=== PATIENT | male | born 1990 | race Caucasian/White ===

== ENCOUNTER 2017-05-03 18:12 | Emergency (ER) | payer BC ==
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
[2017-05-03] MEDS ORDERED: Sodium Chloride 0.9% 10 ML Syringe FLUSH PRN (18:36)
[2017-05-03] MEDS ORDERED: cefTRIAXone 1 GM in Sodium Chloride 0.9% 100 ML IV ONE (18:36)
[2017-05-03 18:51] LABS: CHLORIDE,CL 100 mmol/L (98-107); SODIUM,NA 137 mmol/L (136-145)
== END 2017-05-03 19:55 | disposition home or self-care (01) ==
LOC: LL.ED 18:12
DX: J40 Bronchitis, not specified as acute or chronic (principal); J06.9 Acute upper respiratory infection, unspecified; F41.3 Other mixed anxiety disorders; F32.9 Major depressive disorder, single episode, unspecified; F90.9 Attention-deficit hyperactivity disorder, unspecified type; R00.0 Tachycardia, unspecified; E66.9 Obesity, unspecified; Z87.891 Personal history of nicotine dependence; Z68.34 Body mass index [BMI] 34.0-34.9, adult
CPT/HCPCS: 36415; 71046; 80053; 83605; 83735; 85025; 87040; 87081; 87430; 87804; 96365; 99284; J0696; J7050

== ENCOUNTER 2017-05-21 02:56 | Emergency (ER) | payer BC ==
[2017-05-21] MEDS ORDERED: HYDROmorphone 1 MG/ML Syringe IVPUSH ONE (03:26)
[2017-05-21] MEDS ORDERED: Sodium Chloride 0.9% 10 ML Syringe FLUSH PRN (03:26)
[2017-05-21] MEDS ORDERED: Ondansetron 4 MG/2 ML SDV IVPUSH ONE (03:28)
--- NOTE | 2017-05-21 03:29 | EDM.PDOC ---
ED HPI GENERAL MEDICAL PROBLEM - General Chief Complaint: Abdominal Pain Stated Complaint: RUQ pain Time Seen by Provider: 05/21/17 03:15 Source of Information: Reports: Patient History Limitations: Reports: No Limitations - History of Present Illness INITIAL COMMENTS - FREE TEXT/NARRATIVE: Patient is a 27-year-old who came in with chief complaint right upper quadrant pain states is about 8 out of 10 start around 12 midnight was able to sleep through it until about 2:00 then the pain became became almost unbearable and came in for evaluation. Patient states that this is the first time this happens denies previous episodes Onset: Sudden Duration: Hour(s): (3 hours ago), Getting Worse Location: Reports: Abdomen (Right upper quadrant) RUQ pn Pain Score (Numeric/FACES): 9 - Related Data Allergies Allergy/AdvReac Type Severity Reaction Status Date / Time Fish Containing Products Allergy Diarrhea Verified 05/21/17 03:08 fish oil Allergy Vomiting Uncoded 05/03/17 18:14 Home Meds: Home Meds Dextroamphetamine/Amphetamine [Adderall Xr 15 mg Capsule] 15 mg PO DAILY [History] Past Medical History HEENT History: Reports: Impaired Vision, Other (See Below) Other HEENT History: Patient wears glasses; nasal fracture at age 20 Cardiovascular History: Reports: None Respiratory History: Reports: Intubation, Previous, Other (See Below) Other Respiratory History: Respiratory problems as an infant secondary to premature delivery at about 32 weeks gestation with NICU care required and possible intubation at that time Gastrointestinal History: Reports: Jaundice, Other (See Below) Other Gastrointestinal History: jaundice secondary to prematurity Genitourinary History: Reports: None Musculoskeletal History: Reports: Arthritis, Back Pain, Chronic, Fracture, Osteoarthritis, Other (See Below) Other Musculoskeletal History: bilateral knee fractures with left knee fracture at age 12 and right knee fracture at at age 13 with surgeries as below; nasal fracture as above Neurological History: Reports: Concussion, Head Trauma, Other (See Below) Other Neuro History: Multiple head concussions between ages 12 through 18 secondary to sports injuries with 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 Psychiatric History: Reports: ADD, ADHD, Anxiety, Depression Hematologic History: Reports: None Immunologic History: Reports: None Oncologic (Cancer) History: Reports: None Dermatologic History: Reports: None - Infectious Disease History Infectious Disease History: Reports: Chicken Pox - Past Surgical History Head Surgeries/Procedures: Reports: None HEENT Surgical History: Reports: Oral Surgery, Other (See Below) Other HEENT Surgeries/Procedures: [place] teeth extraction 1 in 2014 Cardiovascular Surgical History: Reports: None Respiratory Surgical History: Reports: None Male Surgical History: Reports: Circumcision, Other (See Below) Other Male Surgeries/Procedures: Circumcision as an infant Endocrine Surgical History: Reports: None Neurological Surgical History: Reports: None Musculoskeletal Surgical History: Reports: Other (See Below) Other Musculoskeletal Surgeries/Procedures:: Left-sided knee surgery at age 15 secondary to previous fracture Oncologic Surgical History: Reports: None Dermatological Surgical History: Reports: None - Past Imaging History Past Imaging History: Reports: CAT Scan, Other (See Below) (Multiple CT scans of the head secondary to head concussions) Social & Family History - Tobacco Use Smoking Status *Q: Former Smoker Years of Tobacco use: 3 Packs/Tins Daily: 0.3 Used Tobacco, but Quit: Yes Month Tobacco Last Used: 2013 Second Hand Smoke Exposure: No - Caffeine Use Caffeine Use: Reports: Soda, Tea - Alcohol Use Days Per Week of Alcohol Use: 0 Number of Drinks Per Day: 9 (1 pint/mixed drinks once a month) Total Drinks Per Week: 0 - Recreational Drug Use Recreational Drug Use: No Drug Use in Last 12 Months: No Recreational Drug Type: Reports: Marijuana/Hashish (Between ages 20 and 23). 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[employer]) ED ROS GENERAL - Review of Systems Review Of Systems: See Below HEENT: Reports: No Symptoms, Glasses Respiratory: Reports: No Symptoms Cardiovascular: Reports: No Symptoms Endocrine: Reports: No Symptoms GI/Abdominal: Reports: Abdominal Pain : Reports: No Symptoms Musculoskeletal: Reports: No Symptoms Skin: Reports: No Symptoms Neurological: Reports: No Symptoms Psychiatric: Reports: No Symptoms ED EXAM, GI/ABD - Physical Exam Exam: See Below Exam Limited By: No Limitations General Appearance: Alert, WD/WN, No Apparent Distress Eyes: Bilateral: Normal Appearance, EOMI Ears: Normal External Exam, Normal Canal, Hearing Grossly Normal, Normal TMs Nose: Normal Inspection, Normal Mucosa, No Blood Throat/Mouth: Normal Inspection, Normal Lips, Normal Teeth, Normal Gums, Normal Oropharynx, Normal Voice, No Airway Compromise Head: Atraumatic, Normocephalic Neck: Normal Inspection, Supple, Non-Tender, Full Range of Motion Respiratory/Chest: No Respiratory Distress, Decreased Breath Sounds Cardiovascular: Normal Peripheral Pulses, Regular Rate, Rhythm, No Edema, No Gallop, No JVD, No Murmur, No Rub GI/Abdominal Exam: Normal Bowel Sounds, Soft, No Mass, Tender (Right upper quadrant positive Sanz sign) (Male) Exam: Deferred Rectal (Males) Exam: Deferred Back Exam: Normal Inspection, Full Range of Motion, NT Extremities: Normal Inspection, Normal Range of Motion, Non-Tender, Normal Capillary Refill, No Pedal Edema Neurological: Alert, Oriented, CN II-XII Intact Psychiatric: Normal Affect, Normal Mood Skin Exam: Warm, Dry, Intact, Normal Color, No Rash Course - Vital Signs Last Recorded V/S: Last Vital Signs Temp 97.6 F 05/21/17 02:57 Pulse 99 05/21/17 02:57 Resp 22 H 05/21/17 02:57 BP 112/91 H 05/21/17 02:57 Pulse Ox 100 05/21/17 02:57 Departure - Departure Time of Disposition: 04:03 Disposition: Home, Self-Care 01 Condition: Fair (Cholecystitis) Clinical Impression: Cholecystitis Abdominal pain Qualifiers: Abdominal location: right upper quadrant Qualified Code(s): R10.11 - Right upper quadrant pain - Discharge Information Instructions: Abdominal Pain, Adult, [id number] Care Plan Goals: Ultrasound of the gallbladder in the morning follow-up with me in the morning
[2017-05-21 03:53] LABS: CHLORIDE,CL 103 mmol/L (98-107); SODIUM,NA 139 mmol/L (136-145)
== END 2017-05-21 04:14 | disposition home or self-care (01) ==
LOC: LL.ED 02:56
DX: K81.9 Cholecystitis, unspecified (principal); K80.10 Calculus of gallbladder with chronic cholecystitis without obstruction; R10.11 Right upper quadrant pain; N20.0 Calculus of kidney; F90.9 Attention-deficit hyperactivity disorder, unspecified type; Z91.013 Allergy to seafood; Z79.899 Other long term (current) drug therapy; Z87.891 Personal history of nicotine dependence
CPT/HCPCS: 36415; 71046; 76705; 80053; 82150; 83605; 83690; 85025; 96374; 96375; 99284; J1170; J2405; J7050

== ENCOUNTER 2017-06-17 08:00 | Day surgery (SDC) | payer BC ==
[~2017-06-17 08:00] MED LIST: Lactated Ringers 1,000 ML IV SCH; Sodium Chloride 0.9% 10 ML Syringe FLUSH PRN
[2017-06-17] MEDS ORDERED: fentaNYL 100 MCG/2 ML SDV ONE ×3 (08:23→11:18)
[2017-06-17] MEDS ORDERED: Midazolam 1 MG/ML 2 ML SDV ONE ×2 (08:23→09:15)
[2017-06-17] MEDS ORDERED: fentaNYL 250 MCG/5 ML SDV ONE ×2 (08:24→09:15)
[2017-06-17] MEDS ORDERED: Propofol 200 MG/20 ML SDV ONE ×2 (08:24→09:15)
[2017-06-17] MEDS ORDERED: Neostigmine Methylsulfate 10 MG/10 ML MDV ONE (09:15)
[2017-06-17] MEDS ORDERED: Ondansetron 4 MG/2 ML SDV ONE (09:15)
[2017-06-17] MEDS ORDERED: Dexamethasone 10 MG/ML SDV ONE (09:15)
[2017-06-17] MEDS ORDERED: Succinylcholine 200 MG/10 ML MDV ONE (09:15)
[2017-06-17] MEDS ORDERED: Ketorolac 30 MG/ML SDV ONE (09:15)
[2017-06-17] MEDS ORDERED: Glycopyrrolate 0.2 MG/ML SDV ONE (09:15)
[2017-06-17] MEDS ORDERED: Rocuronium 100 MG/10 ML MDV ONE (09:15)
--- NOTE | 2017-06-17 09:17 | PCM.HPR ---
H & P Addendum review - H & P Addendum Review Date of Original H & P: 06/03/17 Date Reviewed: 06/17/17 Time Reviewed: 09:00 Patient was Examined: No Changes
--- NOTE | 2017-06-17 10:59 | PCM.OPNOTE ---
- General Post-Op/Procedure Note Date of Surgery/Procedure: 06/17/17 Operative Procedure(s): Lap Maude Findings: Chronic Cholecystitis and Cholelithiasis Pre Op Diagnosis: Cholecystitis and Cholelithiasis Post-Op Diagnosis: Same Anesthesia Technique: General ET Tube Primary Surgeon: Issa Strauss Anesthesia Provider: Trinity Beard Pathology: Gallbladder EBL in mLs: 20 Complications: None Condition: Good
[2017-06-17] MEDS ORDERED: Acetaminophen/HYDROcodone 325-5 MG Tab PO PRN (11:01)
--- NOTE | 2017-06-17 12:15 | OR ---
Date of Procedure: 06/17/2017 PREOPERATIVE DIAGNOSIS: Cholecystitis and cholelithiasis. POSTOPERATIVE DIAGNOSIS: Cholecystitis and cholelithiasis with adhesions. PROCEDURE: Laparoscopic cholecystectomy with adhesiolysis. ANESTHESIA: General. DESCRIPTION OF PROCEDURE: The patient was brought to the operating room where general endotracheal anesthesia was administered. His abdomen was clipped, prepped with ChloraPrep and draped sterilely. An infraumbilical incision was made and extended into the peritoneal cavity without difficulty. The Mihir cannulator was introduced and pneumoperitoneum obtained. The patient was placed in reverse Trendelenburg position and rotated to the left. The remaining three 5 mm ports were placed in the usual positions. The surface of the liver, stomach, omentum and peritoneal surfaces appeared normal. The fundus of the gallbladder was grasped and the entire undersurface was covered with omental adhesions. It was difficult to separate these off, but carefully using blunt dissection and electrocautery, I was able to expose the gallbladder. A small hole was made in the gallbladder in doing so because of dense adhesions and some bile leakage occurred, which was suctioned and irrigated. Careful dissection was used to separate the cystic duct and cystic artery. The cystic artery was doubly clipped proximally and once distally and then transected. The cystic duct and base of the gallbladder had a lot of fibrosis around it, which was carefully dissected and mostly cauterized. Once the lower 3rd of the gallbladder was cleared and the cystic duct was exposed down to the common bile duct, this was milked back into the gallbladder, then doubly clipped proximally and once distally and then transected. The gallbladder was removed from the bed of the liver with difficulty throughout the entire removal because of inflammation and difficulty telling the plane between the gallbladder and liver. Once the gallbladder was completely removed, it was brought out through the umbilical incision. Right upper quadrant was thoroughly irrigated and return was clear and hemostasis assured. Clips were all in place. The ports were removed under direct vision and remained hemostatic. Umbilical fascia was closed with [id number] 0 Vicryl. Skin was closed with 4-0 Vicryl subcuticular sutures. Benzoin and Steri-Strips were placed, and Band-Aids applied. The patient tolerated the procedure well. Estimated blood loss was 20 mL. He returned to Postanesthesia in stable condition. FROYLAN SAINZ MD /[id number]
[2017-06-17] MEDS ORDERED: Promethazine 12.5 MG in Sodium Chloride 0.9% 100 ML IV ONE (13:05)
== END 2017-06-17 15:45 | disposition home or self-care (01) ==
LOC: LL.SDS 08:00
PROVIDERS: ATTEND Surgery
DX: K80.10 Calculus of gallbladder with chronic cholecystitis without obstruction (principal); Z91.013 Allergy to seafood
CPT/HCPCS: 47562; A9270; J0330; J1100; J1885; J2250; J2405; J2550; J2704; J2710; J3010; J7050; J7120

== ENCOUNTER 2024-01-13 02:40 | Observation (INO) | payer BC ==
[2024-01-13 03:08] LABS: BASOPHILS ABSOLUTE AUTO 0.03 K/uL (0.00-0.20); BASOPHILS PERCENT AUTO 0.2 % (0.0-2.0); EOSINOPHILS ABSOLUTE AUTO 0.09 K/uL (0.00-0.50); EOSINOPHILS PERCENT AUTO 0.6 % (0.0-5.0); HEMATOCRIT 48.4 % (39.0-49.0); HEMOGLOBIN 16.4 g/dL (13.1-16.8); LYMPHOCYTES ABSOLUTE AUTO 1.18 K/uL (0.50-3.50); LYMPHOCYTES PERCENT AUTO 7.5 % (10.0-50.0); MEAN CORPUSCULAR HEMOGLOBIN 29.7 pg (28.2-33.3); MEAN CORPUSCULAR HGB CONC 33.9 g/dL (31.7-36.0); MEAN CORPUSCULAR VOLUME 87.7 fL (84.0-98.0); MONOCYTES ABSOLUTE AUTO 1.14 K/uL (0.00-1.00); MONOCYTES PERCENT AUTO 7.2 % (2.0-14.0); NEUTROPHILS ABSOLUTE AUTO 13.35 K/uL (1.40-7.00); NEUTROPHILS PERCENT AUTO 84.5 % (45.0-80.0); PLATELET COUNT,PLT 280 K/uL (150-350); RED BLOOD CELL COUNT 5.52 M/uL (4.33-5.41); RED CELL DISTRIBUTION WIDTH 14.4 % (11.2-14.1); WHITE BLOOD CELL COUNT,WBC 15.8 K/uL (4.0-10.2)
[2024-01-13] MEDS: Ondansetron 4 MG/2 ML SDV IVPUSH ONE ×2 (03:10→04:35)
[2024-01-13] MEDS: Lactated Ringers 1,000 ML IV SCH ×2 (03:10→05:45)
[2024-01-13 03:26] LABS: ALBUMIN 3.7 g/dL (3.4-5.0); ANION GAP 9.3 meq/L (7-15); BILIRUBIN TOTAL 0.6 mg/dL (0.2-1.0); CALCIUM 9.3 mg/dL (8.5-10.1); CARBON DIOXIDE,CO2 29.7 mmol/L (21.0-32.0); CREATININE 1.12 mg/dL (0.51-1.17); EST CRCL DRUG DOSING (CG) 117.12 mL/min; MAGNESIUM 1.9 mg/dL (1.8-2.4); PROTEIN TOTAL,TP 7.8 g/dL (6.4-8.2)
[2024-01-13 03:27] LABS: INR 1.1 (0.9-1.1); PROTHROMBIN TIME 11.3 SEC (9.0-11.1)
[2024-01-13] MEDS: Ondansetron 4 MG/2 ML SDV IVPUSH PRN (06:51)
[2024-01-13 06:56] LABS: BASOPHILS ABSOLUTE AUTO 0.02 K/uL (0.00-0.20); BASOPHILS PERCENT AUTO 0.2 % (0.0-2.0); EOSINOPHILS ABSOLUTE AUTO 0.05 K/uL (0.00-0.50); EOSINOPHILS PERCENT AUTO 0.4 % (0.0-5.0); HEMATOCRIT 46.5 % (39.0-49.0); HEMOGLOBIN 15.5 g/dL (13.1-16.8); LYMPHOCYTES ABSOLUTE AUTO 0.47 K/uL (0.50-3.50); LYMPHOCYTES PERCENT AUTO 3.7 % (10.0-50.0); MEAN CORPUSCULAR HEMOGLOBIN 29.5 pg (28.2-33.3); MEAN CORPUSCULAR HGB CONC 33.3 g/dL (31.7-36.0); MEAN CORPUSCULAR VOLUME 88.6 fL (84.0-98.0); MONOCYTES ABSOLUTE AUTO 0.47 K/uL (0.00-1.00); MONOCYTES PERCENT AUTO 3.7 % (2.0-14.0); NEUTROPHILS ABSOLUTE AUTO 11.56 K/uL (1.40-7.00); PLATELET COUNT,PLT 256 K/uL (150-350); RED BLOOD CELL COUNT 5.25 M/uL (4.33-5.41); RED CELL DISTRIBUTION WIDTH 14.5 % (11.2-14.1); WHITE BLOOD CELL COUNT,WBC 12.6 K/uL (4.0-10.2)
[2024-01-13] MEDS: Ondansetron 4 MG/2 ML SDV ONE (07:24)
[2024-01-13 09:33] LABS: ANION GAP 9.5 meq/L (7-15); CALCIUM 8.8 mg/dL (8.5-10.1); CARBON DIOXIDE,CO2 28.5 mmol/L (21.0-32.0); CREATININE 1.3 mg/dL (0.51-1.17); EST CRCL DRUG DOSING (CG) 100.9 mL/min; MAGNESIUM 1.6 mg/dL (1.8-2.4); POTASSIUM,K 4.1 mmol/L (3.5-5.1)
[2024-01-13] MEDS ORDERED: Ondansetron 4 MG/2 ML SDV IVPUSH PRN (11:14)
[2024-01-13] MEDS: Magnesium Sulfate/Water Premix 2 GM in Premix Bag 1 BAG IV ONE (11:21)
[2024-01-13] MEDS: Loperamide 2 MG Tab PO ONE (11:22)
[2024-01-13] MEDS: Sodium Chloride 0.9% 10 ML Syringe FLUSH PRN (11:22)
[2024-01-13] MEDS: Metoprolol Succinate 25 MG Tab.ER PO ONE (11:23)
[2024-01-14] MEDS: Acetaminophen 325 MG Tab PO PRN (01:33)
[2024-01-14 06:54] LABS: BASOPHILS ABSOLUTE AUTO 0.03 K/uL (0.00-0.20); BASOPHILS PERCENT AUTO 0.6 % (0.0-2.0); EOSINOPHILS ABSOLUTE AUTO 0.12 K/uL (0.00-0.50); EOSINOPHILS PERCENT AUTO 2.5 % (0.0-5.0); HEMATOCRIT 42.7 % (39.0-49.0); HEMOGLOBIN 14.2 g/dL (13.1-16.8); LYMPHOCYTES ABSOLUTE AUTO 0.73 K/uL (0.50-3.50); LYMPHOCYTES PERCENT AUTO 15.5 % (10.0-50.0); MEAN CORPUSCULAR HGB CONC 33.3 g/dL (31.7-36.0); MEAN CORPUSCULAR VOLUME 90.1 fL (84.0-98.0); MONOCYTES ABSOLUTE AUTO 0.64 K/uL (0.00-1.00); MONOCYTES PERCENT AUTO 13.6 % (2.0-14.0); NEUTROPHILS PERCENT AUTO 67.8 % (45.0-80.0); PLATELET COUNT,PLT 192 K/uL (150-350); RED BLOOD CELL COUNT 4.74 M/uL (4.33-5.41); RED CELL DISTRIBUTION WIDTH 14.8 % (11.2-14.1); WHITE BLOOD CELL COUNT,WBC 4.7 K/uL (4.0-10.2)
[2024-01-14 07:13] LABS: CALCIUM 7.9 mg/dL (8.5-10.1); CARBON DIOXIDE,CO2 30.3 mmol/L (21.0-32.0); CREATININE 1.05 mg/dL (0.51-1.17); EST CRCL DRUG DOSING (CG) 124.93 mL/min; POTASSIUM,K 3.4 mmol/L (3.5-5.1)
[2024-01-14 07:14] LABS: ANION GAP 10.1 meq/L (7-15)
[2024-01-14] MEDS: Potassium Bicarbonate/Cit Ac 20 MEQ Effervescent Tab PO ONE (09:15)
== END 2024-01-14 09:30 | disposition home or self-care (01) ==
LOC: LL.ED 02:40 → LL.MS 09:30 → INTOOBSV 09:30
PROVIDERS: ADMIT Emergency Medicine; ATTEND Emergency Medicine
DX: E86.0 Dehydration (principal); R11.2 Nausea with vomiting, unspecified; R19.7 Diarrhea, unspecified; R00.0 Tachycardia, unspecified; I10 Essential (primary) hypertension; E66.812 Obesity, class 2; Z68.36 Body mass index [BMI] 36.0-36.9, adult; Z20.822 Contact with and (suspected) exposure to COVID-19; Z88.8 Allergy status to other drugs, medicaments and biological substances; Z91.018 Allergy to other foods
CPT/HCPCS: 36415; 80048; 80053; 83605; 83690; 83735; 84484; 85025; 85610; 87635; 93005; 96361; 96374; 96375; 96376; 99285; A9270; G0378; J2405; J3475; J7120; J3490; U0002